=== PATIENT | female | born 1970 | race African-American/Black ===

== ENCOUNTER 2022-05-10 15:08 | Emergency (ER) | payer OTHER, BC ==
[2022-05-10] MEDS ORDERED: Acetaminophen 500 MG Tab PO ONE (15:47)
[2022-05-10] MEDS ORDERED: Cyclobenzaprine 10 MG Tab PO ONE (15:49)
[2022-05-10 15:56] LABS: ESTIMATED GFR 104 mL/min (>60)
== END 2022-05-10 18:15 | disposition home or self-care (01) ==
LOC: FB.ED 15:08
DX: S16.1XXA Strain of muscle, fascia and tendon at neck level, initial encounter (principal); S39.012A Strain of muscle, fascia and tendon of lower back, initial encounter; S46.911A Strain of unspecified muscle, fascia and tendon at shoulder and upper arm level, right arm, initial encounter; V49.40XA Driver injured in collision with unspecified motor vehicles in traffic accident, initial encounter; Y92.410 Unspecified street and highway as the place of occurrence of the external cause
CPT/HCPCS: 36415; 70450; 72072; 72100; 72125; 73030-50; 73521; 73610-RT; 80053; 85025; 85610; 85730; 99284; A9270-GY